=== PATIENT | female | born 1990 | race African-American/Black ===

== ENCOUNTER 2017-04-29 05:06 | Emergency (ER) | payer OTHER ==
[~2017-04-29] VITALS: Ht 175.3 cm; Wt 85.0 kg
[2017-04-29 05:10] VITALS: BP 129/81; PULSE 109; RESP 18; TEMP 99.5; O2SAT 94
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
[2017-04-29] MEDS ORDERED: IBUP-232 PO (07:39)
[2017-04-29] MEDS ORDERED: AMOX500C PO (07:39)
== END 2017-04-29 08:03 | disposition home or self-care (01) ==
LOC: NEPC 05:06
DX: S00.531A Contusion of lip, initial encounter (principal); S40.022A Contusion of left upper arm, initial encounter; Y09 Assault by unspecified means
CPT/HCPCS: 73060; 73090; 73130; 99283